=== PATIENT | female | born 1965 | race African-American/Black ===

== ENCOUNTER → 2016-12-12 | Outpatient (CLI) | payer OTHER ==
[2014-02-15 16:34] VITALS: BP 153/73
--- NOTE | 2016-12-12 15:16 | Diagnostic Imaging Report ---
RADHA WHITE [facility] [id number] [facility].[address] [id number] Report Submission Date: Dec 12, 2016 3:00:09 PM CDT Patient Study Name: RENETTA CLARK Date: Dec 12, 2016 2:39:45 PM CDT Modality Type: US Gender: F Description: UNILAT LTD STDY EXT VEINS : 69 Institution: [facility] Physician: RADHA WHITE Examination: Ultrasound vein History: Calf discomfort Findings: Sonographic evaluation of the left lower extremity venous system from the groin to the popliteal fossa inclusive. Normal compressibility. No luminal filling defect. Normal waveforms and response to augmentation. No popliteal region fluid collection. Impression: No evidence for deep venous thrombosis. Electronically signed on Dec 12, 2016 3:00:09 PM CDT by: Adama CHUNG
== END ==
LOC: RAD 14:26
PROVIDERS: ATTEND Family Medicine
DX: R60.0 Localized edema (principal)
CPT/HCPCS: 93971

== ENCOUNTER 2017-03-18 10:44 | Outpatient (CLI) | payer OTHER ==
[2014-02-15 16:34] VITALS: BP 153/73
== END 2017-03-18 10:45 ==
LOC: LABRHC 10:44
PROVIDERS: ATTEND Family Medicine
DX: J02.9 Acute pharyngitis, unspecified (principal)
CPT/HCPCS: 87070

== ENCOUNTER 2017-06-13 15:11 | Outpatient (CLI) | payer OTHER ==
[2014-02-15 16:34] VITALS: BP 153/73
[2017-06-13 15:36] LABS: BASOPHILS % 0.5 (0.0-1.5); EOSINOPHILS % 1.5 % (0.0-6.8); MEAN CORPUSCULAR VOLUME 91.3 fl (80.0-100.0)
[2017-06-13 16:13] LABS: eGFR (African) > 60; eGFR (Non-African) > 60
== END 2017-06-13 15:12 ==
LOC: RT 15:11
PROVIDERS: ATTEND Physician Assistant
DX: I10 Essential (primary) hypertension (principal); R00.0 Tachycardia, unspecified
CPT/HCPCS: 36415; 80053; 85025

== ENCOUNTER 2018-12-09 15:41 | Outpatient (CLI) | payer OTHER ==
[2014-02-15 16:34] VITALS: BP 153/73
[2018-12-09 17:01] LABS: eGFR (Non-African) > 60
== END 2018-12-09 15:43 ==
LOC: RT 15:41
PROVIDERS: ATTEND Family Medicine
DX: R00.2 Palpitations (principal); D50.8 Other iron deficiency anemias
CPT/HCPCS: 36415; 80053; 83540; 84439; 84443; 84481